=== PATIENT | male | born 1975 | race Caucasian/White ===

== ENCOUNTER 2020-07-27 07:12 | Day surgery (SDC) | payer BC, OTHER ==
[~2020-07-27 07:12] MED LIST: Lactated Ringers 1,000 ML IV SCH; Lidocaine 1%/Sod Bicarbonate in NS 8.4% 1 ML Syringe IDERM PRN; Sodium Chloride 0.9% 10 ML Syringe FLUSH PRN
--- NOTE | 2020-07-27 07:28 | PCM.PREANE ---
Preanesthetic Assessment - Procedure Proposed Procedure: Colonoscopy - Anesthesia/Transfusion/Family Hx Anesthesia History: Prior Anesthesia Without Reaction Family History of Anesthesia Reaction: No Transfusion History: No Prior Transfusion(s) - Review of Systems General: No Symptoms Pulmonary: No Symptoms Cardiovascular: Dyspnea on Exertion Gastrointestinal: No Symptoms Neurological: Numbness (toes) Other: Reports: Easy Bleeding, Diabetes - Physical Assessment NPO Status Date: 07/26/20 NPO Status Time: 00:00 Height: 1.85 m Weight: 157 kg ASA Class: 3 Mental Status: Alert & Oriented x3 Airway Class: Mallampati = 2 Dentition: Reports: [place](s), Missing Tooth/Teeth Thyro-Mental Finger Breadths: 2 Mouth Opening Finger Breadths: 2 ROM/Head Extension: Full Lungs: Clear to Auscultation, Normal Respiratory Effort Cardiovascular: Regular Rate, Regular Rhythm - Allergies Allergies/Adverse Reactions: Allergies Allergy/AdvReac Type Severity Reaction Status Date / Time No Known Allergies Allergy Verified 05/23/18 07:33 - Blood Blood Available: No Product(s) Available: None - Anesthesia Plan Pre-Op Medication Ordered: None - Acknowledgements Anesthesia Type Planned: MAC Pt an Appropriate Candidate for the Planned Anesthesia: Yes Alternatives and Risks of Anesthesia Discussed w Pt/Guardian: Yes Pt/Guardian Understands and Agrees with Anesthesia Plan: Yes PreAnesthesia Questionnaire Gastrointestinal History: Reports: GERD - CURRENT (IN HOUSE) MEDS Current Meds: Current Medications Lactated Ringer's (Ringers, Lactated) 1,000 mls @ 125 mls/hr IV ASDIRECTED WILLIAM Stop: 07/27/20 23:00 Lidocaine/Sodium Bicarbonate (Lidocaine 1%/Sod Bicarbonate In Ns 8.4% 1 Ml Syringe) 0.25 ml IDERM ONETIME PRN PRN Reason: Prior to IV Start Stop: 07/27/20 18:00 Sodium Chloride (Sodium Chloride 0.9% 10 Ml Syringe) 10 ml FLUSH ASDIRECTED PRN PRN Reason: Keep Vein Open Stop: 07/27/20 18:00
[2020-07-27] MEDS ORDERED: Propofol 200 MG/20 ML SDV ONE ×4 (07:45→08:40)
[2020-07-27] MEDS ORDERED: fentaNYL 100 MCG/2 ML SDV ONE ×2 (07:46→09:13)
[2020-07-27] MEDS ORDERED: Midazolam 1 MG/ML 2 ML SDV ONE (07:46)
[2020-07-27] MEDS ORDERED: Lidocaine 1% 4 ML ONE (07:46)
[2020-07-27] MEDS ORDERED: Lactated Ringers 1,000 ML ONE (08:42)
[2020-07-27] MEDS ORDERED: fentaNYL 100 MCG/2 ML SDV IVPUSH PRN (09:12)
[2020-07-27] MEDS ORDERED: Ketorolac 30 MG/ML SDV IVPUSH PRN (09:12)
--- NOTE | 2020-07-27 09:37 | PROC ---
DATE OF OPERATION: 07/27/2020 SURGEON: Tracy Hodges MD PREOPERATIVE DIAGNOSES: Hematochezia, hemorrhoids. POSTOPERATIVE DIAGNOSES: 1. Polyps in the hepatic flexure x2, sigmoid colon x1, removed. 2. Diverticulosis. 3. Hemorrhoids - banded. PROCEDURE: Colonoscopy with hemorrhoid banding. ANESTHESIA: Monitored anesthesia care. ESTIMATED BLOOD LOSS: Minimal. COMPLICATIONS: None. INDICATION AND CONSENT: The patient is a 44-year-old male who has been having hematochezia and feeling of fullness in the perianal opening for some time now. The patient presents to the clinic for evaluation of this issue and I talked to the patient and recommended colonoscopy with hemorrhoid banding due to his persistent hemorrhoids and bleeding. We discussed risks, benefits, and alternatives, and informed consent was obtained. DESCRIPTION OF PROCEDURE: The patient was taken to the procedure room, placed in left lateral decubitus position. Monitored anesthesia care was induced. Time-out was performed. Then, procedure was begun by doing a perianal exam which revealed grade 4 internal hemorrhoids and digital rectal exam, which revealed the same and likely an enlarged prostate, and the scope was inserted and taken all the way to the cecum. Appendiceal orifice and ileocecal valve were photographed. In the cecum, there were no polyps. Prep was good. Upon withdrawal, there were 2 polyps in the hepatic flexure that were pedunculated, one was about 8 mm and another one was 5 mm. Both of these were removed with hot snare and retrieved. Then, we continued to withdraw. We found another polyp in the sigmoid colon. This was 3 mm, removed with cold forceps. Estimated blood loss was minimal in the sigmoid colon. Also, there was some scattered medium-sized diverticulosis. In the rectum, on retroflexion, there were internal hemorrhoids. At this point then, the air was suctioned out and proceeded with hemorrhoid banding. A speculum was placed into the rectum and hemorrhoid complexes in the right posterior, right anterior, and left lateral were banded, so therefore, a total of 3 bands were placed. There was slow ooze at the end and the procedure was concluded. The patient will be allowed to return home and follow up with me in [place] in 2-1/2 weeks. MMODAL /[id number] NOELLE
--- NOTE | 2020-07-27 10:24 | PCM48HPAN ---
Post Anesthesia Note - EVALUATION WITHIN 48HRS OF ANESTHETIC Vital Signs in Normal Range: Yes Patient Participated in Evaluation: Yes Respiratory Function Stable: Yes Airway Patent: Yes Cardiovascular Function Stable: Yes Hydration Status Stable: Yes Pain Control Satisfactory: Yes Nausea and Vomiting Control Satisfactory: Yes Mental Status Recovered: Yes Vital Signs: Last Vital Signs Temp 36.1 C 07/27/20 09:08 Pulse 72 07/27/20 09:58 Resp 17 07/27/20 09:30 BP 135/75 07/27/20 09:30 Pulse Ox 96 07/27/20 09:58 - COMMENTS/OBSERVATIONS Free Text/Narrative:: no anesthesia complications noted
== END 2020-07-27 10:46 | disposition home or self-care (01) ==
LOC: JD.SDS 07:12
PROVIDERS: ATTEND Surgery
DX: D12.3 Benign neoplasm of transverse colon (principal); K57.30 Diverticulosis of large intestine without perforation or abscess without bleeding; K64.3 Fourth degree hemorrhoids; E66.9 Obesity, unspecified; E11.9 Type 2 diabetes mellitus without complications; I10 Essential (primary) hypertension; G47.33 Obstructive sleep apnea (adult) (pediatric); Z98.890 Other specified postprocedural states; Z79.84 Long term (current) use of oral hypoglycemic drugs; Z79.899 Other long term (current) drug therapy; Z87.891 Personal history of nicotine dependence; Z68.42 Body mass index [BMI] 45.0-49.9, adult
CPT/HCPCS: 45380; 45385; 45398; 82947; J1885; J2250; J2704; J3010; J7120; 00902